=== PATIENT | male | born 1965 | race Caucasian/White ===

== ENCOUNTER → 2017-01-28 | Outpatient (CLI) | payer BC ==
[2017-01-28 13:08] LABS: CHLORIDE,CL 107 mmol/L (98-110); SODIUM,NA 139 mmol/L (136-146)
--- NOTE | 2017-01-28 14:19 | CR ---
EXAMINATION: Two-view chest (PA and Lateral views). HISTORY: Cough. Comparison: 10/16/2016. FINDINGS: The trachea is midline. The cardiomediastinal silhouette is within normal limits. Postsurgical bush es are noted within the left hemithorax with scarring within the medial left upper lobe. No pleural effusion or pneumothorax. Osseous structures appear unremarkable. IMPRESSION: No acute cardiopulmonary process.
== END | disposition home or self-care (01) ==
LOC: MW.CHFP 12:20
PROVIDERS: ATTEND Emergency Medicine
DX: R05 Cough (principal)
CPT/HCPCS: 36415; 71020; 71020-26; 80048; 85025; 86140

== ENCOUNTER → 2017-02-24 | Outpatient (CLI) | payer BC | LOC: MW.CHFP 11:43 | PROVIDERS: ATTEND Emergency Medicine | DX: R05 Cough (principal) | CPT/HCPCS: 87070; 87205 ==

== ENCOUNTER 2019-05-03 10:29 | Day surgery (SDC) | payer BC ==
[~2019-05-03 10:29] MED LIST: Lactated Ringers 1,000 ML IV SCH; Lidocaine 2% 5 ML SDV ONE; Propofol 200 MG/20 ML SDV ONE; Sodium Chloride 0.9% 10 ML SDV IV PRN; Sodium Chloride 0.9% 10 ML Syringe FLUSH PRN; Sodium Chloride 0.9% 2.5 ML Syringe FLUSH PRN; fentaNYL 100 MCG/2 ML SDV ONE
--- NOTE | 2019-05-03 11:17 | PCM.PREANE ---
Preanesthetic Assessment - Anesthesia/Transfusion/Family Hx Anesthesia History: Prior Anesthesia Without Reaction Other Type of Anesthesia Reaction Comment: "father had hard time waking up, he had polio as a young adult" Family History of Anesthesia Reaction: No Transfusion History: No Prior Transfusion(s) - Review of Systems General: No Symptoms Pulmonary: Other (occ wheezing uses ventolin daily, no recent exac or steroid use, hx of lobectomy for bening granulomatous disease) Cardiovascular: No Symptoms Gastrointestinal: No Symptoms Neurological: No Symptoms Other: Reports: None - Physical Assessment NPO Status Date: 05/02/19 O2 Sat by Pulse Oximetry: 98 Respiratory Rate: 16 Vital Signs: Last Vital Signs Temp 97.9 F 05/03/19 10:45 Pulse 64 05/03/19 10:45 Resp 16 05/03/19 10:45 BP 113/71 05/03/19 10:45 Pulse Ox 98 05/03/19 10:45 Height: 5 ft 10 in Weight: 73.028 kg ASA Class: 2 Mental Status: Alert & Oriented x3 Airway Class: Mallampati = 2 Dentition: Reports: Normal Dentition ROM/Head Extension: Full Lungs: Clear to Auscultation, Normal Respiratory Effort Cardiovascular: Regular Rate, Regular Rhythm - Allergies Allergies/Adverse Reactions: Allergies Allergy/AdvReac Type Severity Reaction Status Date / Time No Known Allergies Allergy Verified 04/26/19 09:41 - Blood Blood Available: No - Acknowledgements Anesthesia Type Planned: General Anesthesia Pt an Appropriate Candidate for the Planned Anesthesia: Yes Alternatives and Risks of Anesthesia Discussed w Pt/Guardian: Yes Pt/Guardian Understands and Agrees with Anesthesia Plan: Yes Additional Comments: 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, s/p lobectomy, BPH PLAN: mac/tiva PreAnesthesia Questionnaire HEENT History: Reports: Allergic Rhinitis, Hard of Hearing Other HEENT History: wears glasses, deaf in left ear Cardiovascular History: Reports: High Cholesterol Respiratory History: Reports: Other (See Below) Other Respiratory History: seasonal allergies which cause asthma like symptoms, seldom uses inhaler, 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 Gastrointestinal History: Reports: None Genitourinary History: Reports: BPH Musculoskeletal History: Reports: None Neurological History: Reports: Concussion Psychiatric History: Reports: Anxiety Endocrine/Metabolic History: Reports: None Hematologic History: Reports: None Immunologic History: Reports: None Oncologic (Cancer) History: Reports: None Dermatologic History: Reports: None - Past Surgical History Head Surgeries/Procedures: Reports: None HEENT Surgical History: Reports: Oral Surgery Other HEENT Surgeries/Procedures: dental implants Cardiovascular Surgical History: Reports: None Respiratory Surgical History: Reports: Lung Resection, Other (See Below) Other Respiratory Surgeries/Procedures: left upper pneumonectomy due to chronic lung infection in [place] GI Surgical History: Reports: Hernia, Inguinal Male Surgical History: Reports: None Endocrine Surgical History: Reports: None Neurological Surgical History: Reports: None Musculoskeletal Surgical History: Reports: None Oncologic Surgical History: Reports: None Dermatological Surgical History: Reports: None - SUBSTANCE USE Smoking Status *Q: Never Smoker Tobacco Use Within Last Twelve Months: Snuff/Dip Recreational Drug Use History: No - HOME MEDS Home Medications: Home Meds Albuterol [Ventolin HFA] 1 - 2 puff INH ASDIRECTED PRN 04/26/19 [History] Montelukast Sodium 10 mg PO BEDTIME 04/26/19 [History] Sertraline HCl 0.5 tab PO DAILY 04/26/19 [History] Tamsulosin HCl [Flomax] 0.4 mg PO DAILY 04/26/19 [History] atorvaSTATin Calcium [Atorvastatin Calcium] 10 mg PO DAILY 04/26/19 [History] - CURRENT (IN HOUSE) MEDS Current Meds: Current Medications Lactated Ringer's (Ringers, Lactated) 1,000 mls @ 125 mls/hr IV ASDIRECTED AUDRA Sodium Chloride (Saline Flush) 10 ml FLUSH ASDIRECTED PRN PRN Reason: Keep Vein Open Sodium Chloride (Saline Flush) 2.5 ml FLUSH ASDIRECTED PRN PRN Reason: Keep Vein Open Sodium Chloride (Saline Flush) 10 ml FLUSH ASDIRECTED PRN PRN Reason: Keep Vein Open Sodium Chloride (Saline Flush) 2.5 ml FLUSH ASDIRECTED PRN PRN Reason: Keep Vein Open Sodium Chloride (Normal Saline) 10 ml IV ASDIRECTED PRN PRN Reason: IV Use Discontinued Medications Fentanyl (Sublimaze) Confirm Administered Dose 100 mcg .ROUTE .STK-MED ONE Stop: 05/03/19 07:02 Lidocaine (Xylocaine-Mpf 2%) Confirm Administered Dose 5 ml .ROUTE .STK-MED ONE Stop: 05/03/19 07:02 Propofol (Diprivan 20 Ml) Confirm Administered Dose 400 mg .ROUTE .[facility] ONE Stop: 05/03/19 07:02
[2019-05-03] MEDS ORDERED: Glycopyrrolate 0.2 MG/ML SDV ONE ×2 (14:49→14:59)
--- NOTE | 2019-05-03 15:06 | PCM.POSTAN ---
POST ANESTHESIA ASSESSMENT - MENTAL STATUS Mental Status: Alert, Oriented - RESPIRATORY Respiratory Status: Respiratory Rate WNL, Airway Patent, O2 Saturation Stable - CARDIOVASCULAR CV Status: Pulse Rate WNL, Blood Pressure Stable - GASTROINTESTINAL GI Status: No Symptoms - POST OP HYDRATION Hydration Status: Adequate & Stable
--- NOTE | 2019-05-03 15:18 | PCM.OPNOTE ---
- General Post-Op/Procedure Note Date of Surgery/Procedure: 05/03/19 Operative Procedure(s): Screening colonoscopy Findings: Extensive diverticulosis through the sigmoid colon, sigmoid colon polyp Pre Op Diagnosis: Screening colonoscopy Post-Op Diagnosis: Diverticulosis, sigmoid colon polyp Anesthesia Technique: [facility] [place] Surgeon: Bailey Rod Condition: Good
--- NOTE | 2019-05-03 16:03 | PCM48HPAN ---
Post Anesthesia Note - EVALUATION WITHIN 48HRS OF ANESTHETIC Vital Signs in Normal Range: Yes Patient Participated in Evaluation: Yes Respiratory Function Stable: Yes Airway Patent: Yes Cardiovascular Function Stable: Yes Hydration Status Stable: Yes Pain Control Satisfactory: Yes Nausea and Vomiting Control Satisfactory: Yes Mental Status Recovered: Yes Resp Rate: 16
[2019-05-03 16:53] VITALS: BP 103/73
--- NOTE | 2019-05-03 18:57 | OR ---
SURGEON: BAILEY ROD MD DATE OF PROCEDURE: 05/03/2019 PREOPERATIVE DIAGNOSIS: Screening colonoscopy. POSTOPERATIVE DIAGNOSES: 1. Diverticulosis. 2. Sigmoid colon polyps. PROCEDURE PERFORMED: Screening colonoscopy. PRIMARY SURGEON: Endoscopist: Bailey Rod MD. ANESTHESIA: MAC. INSTRUMENT USED: Olympus colonoscope. EXTENT OF EXAM: To the cecum. PREPARATION: Good. LIMITATIONS: None. INDICATION FOR EXAMINATION: The patient is a 54-year-old male who presents for a screening colonoscopy. His father has a history of colon cancer. The patient and I discussed the procedure, expected perioperative course, and risks including bleeding, infection, or damage to surrounding structures including perforation. The patient verbalized understanding and wishes to proceed. PROCEDURE IN DETAIL: The patient was brought to the endoscopy suite and placed in the left lateral decubitus position. A time-out was completed verifying the patient's name, age, date of , allergies, and procedure to be performed. Monitored anesthesia care was induced and continuous oxygen was provided via nasal cannula throughout the procedure. After adequate sedation was achieved, a digital rectal exam was performed. This exam was within normal limits. A well-lubricated colonoscope was inserted in the rectum and advanced under direct visualization to the level of cecum. The cecum was then identified by both visual and anatomic landmarks. A photograph was taken of the cecal cap, however, I was unable to retroflex the scope within the cecum due to looping of the scope more proximally. The scope was then fully withdrawn while examining the color, texture, anatomy, and integrity of the mucosa from the cecum to the anal canal. The patient had a very redundant sigmoid colon with extensive diverticulosis throughout. There was one sessile sigmoid colon polyp in the midportion of the sigmoid. This was removed in piecemeal fashion using a cold biopsy forceps. The scope was then brought into the rectum and retroflexed to allow visualization of the anal canal opening. This appeared normal and a photograph was taken. The scope was straightened out and fully withdrawn. The cecum to anus time was 9 minutes. The patient tolerated the procedure well and transferred to the PACU in stable condition. ENDOSCOPIC DIAGNOSES: 1. Diverticulosis. 2. Sigmoid colon polyps. RECOMMENDATIONS: Follow up in clinic in 2 weeks. RICO / MCKAYLA /[id number]
== END 2019-05-03 16:05 | disposition home or self-care (01) ==
LOC: MW.SDS 10:29
PROVIDERS: ATTEND Surgery
DX: Z12.11 Encounter for screening for malignant neoplasm of colon (principal); K63.5 Polyp of colon; K57.30 Diverticulosis of large intestine without perforation or abscess without bleeding; F41.9 Anxiety disorder, unspecified; J30.2 Other seasonal allergic rhinitis; H91.92 Unspecified hearing loss, left ear; Z80.0 Family history of malignant neoplasm of digestive organs; Z79.52 Long term (current) use of systemic steroids; Z79.899 Other long term (current) drug therapy; Z98.890 Other specified postprocedural states
CPT/HCPCS: 45380; J2001; J2704; J3010; J3490; J7120; 88305

== ENCOUNTER 2019-09-15 19:09 | Observation (INO) | payer BC ==
[2019-09-15] MEDS ORDERED: Ondansetron 4 MG/2 ML SDV IVPUSH ONE (19:19)
[2019-09-15] MEDS ORDERED: Sodium Chloride 0.9% 2.5 ML Syringe FLUSH PRN (19:19)
[2019-09-15] MEDS ORDERED: Albuterol/Ipratropium 3.0-0.5 MG/3 ML Neb Soln NEB ONE (19:19)
[2019-09-15] MEDS ORDERED: methylPREDNISolone Sodium Succinate 125 MG/2 ML SDV IVPUSH ONE (19:19)
[2019-09-15] MEDS ORDERED: Sodium Chloride 0.9% 10 ML Syringe FLUSH PRN (19:19)
[2019-09-15] MEDS ORDERED: LORazepam 2 MG/ML SDV IVPUSH ONE (19:19)
[2019-09-15] MEDS ORDERED: HYDROmorphone 1 MG/ML Syringe IVPUSH ONE (19:19)
[2019-09-15] MEDS: Sodium Chloride 0.9% 1,000 ML IV SCH (19:36)
--- NOTE | 2019-09-15 19:36 | EDM.PDOC ---
ED HPI GENERAL MEDICAL PROBLEM - General Chief Complaint: Respiratory Problem Stated Complaint: COUGHING UP BLOOD Time Seen by Provider: 09/15/19 19:13 - History of Present Illness INITIAL COMMENTS - FREE TEXT/NARRATIVE: HISTORY AND PHYSICAL: History of present illness: Patient's a 54-year-old white male with history of histoplasmosis with an associated pulmonary Mass. this mass has been evaluated by surgery in an attempt to remove it and was found to be wrapped around pulmonary artery not thought to be malignant and was incompletely resected he is scheduled on October 19 to be evaluated at [facility] in [place] by [facility] specialist for further consideration and more complete resection he presents today after been hunting recently and now developed a cough with more significant hemoptysis has been qualified as beyond the amount that would fill up a shot glass in relatively persistent over the last 24 hours. There's been no fever chills nausea vomiting or other complaints he has had a similar episode in the past that was again related to an episode in which he did exert himself quite significantly. Review of systems: As per history of present illness and below otherwise all systems reviewed and negative. Past medical history: As per history of present illness and as reviewed below otherwise noncontributory. Surgical history: As per history of present illness and as reviewed below otherwise noncontributory. Social history: No reported history of drug or alcohol abuse. Family history: As per history of present illness and as reviewed below otherwise noncontributory. Physical exam: HEENT: Atraumatic, normocephalic, pupils reactive, negative for conjunctival pallor or scleral icterus, mucous membranes moist, throat clear, neck supple, nontender, trachea midline. Lungs: Clear to auscultation, breath sounds equal bilaterally, chest nontender. Heart: S1S2, regular, negative for clicks, rubs, or JVD. Abdomen: Soft, nondistended, nontender. Negative for masses or hepatosplenomegaly. Negative for costovertebral tenderness. Pelvis: Stable nontender. Genitourinary: Deferred. Rectal: Deferred. Extremities: Atraumatic, negative for cords or calf pain. Neurovascular unremarkable. Neuro: Awake, alert, oriented. Cranial nerves II through XII unremarkable. Cerebellum unremarkable. Motor and sensory unremarkable throughout. Exam nonfocal. Diagnostics: CBC CMP PT/INR influenza screen ABG EKG blood culture 2 CTA chest d-dimer Therapeutics: IV O2 monitor albuterol ipratropium nebulizer Solu-Medrol 125 mg IV Dilaudid 1 mg IV and Zofran 4 mg IV Ativan 1 mg Impression: #1 hemoptysis #2 history of histoplasmosis #3 history of pulmonary mass Definitive disposition and diagnosis as appropriate pending reevaluation and review of above. - Related Data Allergies Allergy/AdvReac Type Severity Reaction Status Date / Time No Known Allergies Allergy Verified 09/15/19 19:19 Home Meds: Home Meds Albuterol [Ventolin HFA] 1 - 2 puff INH ASDIRECTED PRN 04/26/19 [History] Montelukast Sodium 10 mg PO BEDTIME 04/26/19 [History] Sertraline HCl 0.5 tab PO DAILY 04/26/19 [History] Tamsulosin HCl [Flomax] 0.4 mg PO DAILY 04/26/19 [History] atorvaSTATin Calcium [Atorvastatin Calcium] 10 mg PO DAILY 04/26/19 [History] Past Medical History HEENT History: Reports: Allergic Rhinitis, Hard of Hearing Other HEENT History: wears glasses, deaf in left ear Cardiovascular History: Reports: High Cholesterol Respiratory History: Reports: Other (See Below) Other Respiratory History: seasonal allergies which cause asthma like symptoms, seldom uses inhaler, 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 Gastrointestinal History: Reports: None Genitourinary History: Reports: BPH Musculoskeletal History: Reports: None Neurological History: Reports: Concussion Psychiatric History: Reports: Anxiety Endocrine/Metabolic History: Reports: None Hematologic History: Reports: None Immunologic History: Reports: None Oncologic (Cancer) History: Reports: None Dermatologic History: Reports: None - Past Surgical History Head Surgeries/Procedures: Reports: None HEENT Surgical History: Reports: Oral Surgery Other HEENT Surgeries/Procedures: dental implants Cardiovascular Surgical History: Reports: None Respiratory Surgical History: Reports: Lung Resection, Other (See Below) Other Respiratory Surgeries/Procedures: left upper pneumonectomy due to chronic lung infection in [place] GI Surgical History: Reports: Hernia, Inguinal Male Surgical History: Reports: None Endocrine Surgical History: Reports: None Neurological Surgical History: Reports: None Musculoskeletal Surgical History: Reports: None Oncologic Surgical History: Reports: None Dermatological Surgical History: Reports: None Social & Family History - Tobacco Use Smoking Status *Q: Never Smoker ED ROS GENERAL - Review of Systems Review Of Systems: ROS reveals no pertinent complaints other than HPI. ED EXAM, GENERAL - Physical Exam Exam: See Below (Dictation) Course - Vital Signs Last Recorded V/S: Last Vital Signs Temp 36.1 C 09/15/19 19:14 Pulse 74 09/15/19 21:22 Resp 14 09/15/19 21:22 BP 119/67 09/15/19 21:22 Pulse Ox 96 09/15/19 21:22 - Orders/Labs/Meds Orders: Active Orders 24 hr Category Date Time Status Cardiac Monitoring [RC] . DIRECTED Care 09/15/19 19:17 Active EKG Documentation Completion [RC] STAT Care 09/15/19 19:17 Active Oxygen Therapy, ED [RC] ASDIRECTED Care 09/15/19 19:17 Active Pulse Oximetry [RC] ASDIRECTED Care 09/15/19 19:17 Active RT Aerosol Therapy [RC] ASDIRECTED Care 09/15/19 19:20 Active CULTURE BLOOD [BC] Stat Lab 09/15/19 19:30 Received CULTURE BLOOD [BC] Stat Lab 09/15/19 19:45 Received Levofloxacin/Dextrose 5%-Water [Levaquin in D5W 750 MG/ Med 09/15/19 21:38 Active 150 ML] 750 mg Premix Bag 1 bag IV ONETIME Sodium Chloride 0.9% [Normal Saline] 1,000 ml Med 09/15/19 19:30 Active IV STAT Sodium Chloride 0.9% [Saline Flush] Med 09/15/19 19:19 Active 10 ml FLUSH ASDIRECTED PRN Sodium Chloride 0.9% [Saline Flush] Med 09/15/19 19:19 Active 2.5 ml FLUSH ASDIRECTED PRN Blood Culture x2 Reflex Set [OM.PC] Stat Oth 09/15/19 19:18 Ordered Saline Lock Insert [OM.PC] Stat Oth 09/15/19 19:17 Ordered Medication Orders Sodium Chloride (Normal Saline) 1,000 mls @ 125 mls/hr IV STAT [facility] Last Admin: 09/15/19 19:36 Dose: 125 mls/hr Levofloxacin/Dextrose 750 mg/ (Premix) 150 mls @ 100 mls/hr IV ONETIME ONE Stop: 09/15/19 23:07 Sodium Chloride (Saline Flush) 10 ml FLUSH ASDIRECTED PRN PRN Reason: Keep Vein Open Sodium Chloride (Saline Flush) 2.5 ml FLUSH ASDIRECTED PRN PRN Reason: Keep Vein Open Labs: Laboratory Tests 09/15/19 09/15/19 09/15/19 Range/Units 19:15 19:15 19:15 WBC 10.46 (4.0-11.0) K/uL RBC 4.29 L (4.50-5.90) M/uL Hgb 13.5 (13.0-17.0) g/dL Hct 40.6 (38.0-50.0) % MCV 94.6 (80.0-98.0) fL MCH 31.5 (27.0-32.0) pg MCHC 33.3 (31.0-37.0) g/dL RDW Std Deviation 47.9 (28.0-62.0) fl RDW Coeff of Maribel 14 (11.0-15.0) % Plt Count 352 (150-400) K/uL MPV 9.80 (7.40-12.00) fL Neut % (Auto) 61.9 (48.0-80.0) % Lymph % (Auto) 28.4 (16.0-40.0) % [place] % (Auto) 8.1 (0.0-15.0) % Eos % (Auto) 1.4 (0.0-7.0) % Baso % (Auto) 0.2 (0.0-1.5) % Neut # (Auto) 6.5 H (1.4-5.7) K/uL Lymph # (Auto) 3.0 H (0.6-2.4) K/uL [place] # (Auto) 0.9 H (0.0-0.8) K/uL Eos # (Auto) 0.2 (0.0-0.7) K/uL Baso # (Auto) 0.0 (0.0-0.1) K/uL Nucleated RBC % 0.0 /100WBC Nucleated RBCs # 0 K/uL INR D-Dimer, Quantitative (0.0-0.50) mg/L FEU ABG pH (7.35-7.45) ABG pCO2 (35-45) mmHG ABG pO2 (75-100) mmHG ABG HCO3 (22-26) mEq/L ABG Total CO2 ABG Base Excess (-2.0-2.0) Sodium 144 (136-148) mmol/L Potassium 3.9 (3.5-5.1) mmol/L Chloride 105 (98-107) mmol/L Carbon Dioxide 27.7 (21.0-32.0) mmol/L BUN 19 H (7.0-18.0) mg/dL Creatinine 1.1 (0.8-1.3) mg/dL Est Cr Clr Drug Dosing TNP Estimated GFR (MDRD) > 60.0 ml/min Glucose 91 (74-106) mg/dL Calcium 8.8 (8.5-10.1) mg/dL Total Bilirubin 0.3 (0.2-1.0) mg/dL AST 21 (15-37) IU/L ALT 24 (14-63) IU/L Alkaline Phosphatase 59 (46-116) U/L B-Natriuretic Peptide 19 (<100) PG/ML Total Protein 7.6 (6.4-8.2) g/dL Albumin 3.8 (3.4-5.0) g/dL Globulin 3.8 (2.6-4.0) g/dL Albumin/Globulin Ratio 1.0 (0.9-1.6) 09/15/19 09/15/19 Range/Units 19:15 19:28 WBC (4.0-11.0) K/uL RBC (4.50-5.90) M/uL Hgb (13.0-17.0) g/dL Hct (38.0-50.0) % MCV (80.0-98.0) fL MCH (27.0-32.0) pg MCHC (31.0-37.0) g/dL RDW Std Deviation (28.0-62.0) fl RDW Coeff of Maribel (11.0-15.0) % Plt Count (150-400) K/uL MPV (7.40-12.00) fL Neut % (Auto) (48.0-80.0) % Lymph % (Auto) (16.0-40.0) % [place] % (Auto) (0.0-15.0) % Eos % (Auto) (0.0-7.0) % Baso % (Auto) (0.0-1.5) % Neut # (Auto) (1.4-5.7) K/uL Lymph # (Auto) (0.6-2.4) K/uL [place] # (Auto) (0.0-0.8) K/uL Eos # (Auto) (0.0-0.7) K/uL Baso # (Auto) (0.0-0.1) K/uL Nucleated RBC % /100WBC Nucleated RBCs # K/uL INR 0.98 D-Dimer, Quantitative 0.39 (0.0-0.50) mg/L FEU ABG pH 7.474 H (7.35-7.45) ABG pCO2 36 (35-45) mmHG ABG pO2 70 L (75-100) mmHG ABG HCO3 26 (22-26) mEq/L ABG Total CO2 23.3 ABG Base Excess 2.9 H (-2.0-2.0) Sodium (136-148) mmol/L Potassium (3.5-5.1) mmol/L Chloride (98-107) mmol/L Carbon Dioxide (21.0-32.0) mmol/L BUN (7.0-18.0) mg/dL Creatinine (0.8-1.3) mg/dL Est Cr Clr Drug Dosing Estimated GFR (MDRD) ml/min Glucose (74-106) mg/dL Calcium (8.5-10.1) mg/dL Total Bilirubin (0.2-1.0) mg/dL AST (15-37) IU/L ALT (14-63) IU/L Alkaline Phosphatase (46-116) U/L B-Natriuretic Peptide (<100) PG/ML Total Protein (6.4-8.2) g/dL Albumin (3.4-5.0) g/dL Globulin (2.6-4.0) g/dL Albumin/Globulin Ratio (0.9-1.6) Meds: Medications Generic Name Dose Route Start Last Admin Trade Name Freq PRN Reason Stop Dose Admin Sodium Chloride 1,000 mls @ 125 mls/hr 09/15/19 19:30 09/15/19 19:36 Normal Saline IV 125 mls/hr STAT AUDRA Administration Levofloxacin/Dextrose 750 mg/ 150 mls @ 100 mls/hr 09/15/19 21:38 Premix IV 09/15/19 23:07 ONETIME ONE Sodium Chloride 10 ml 09/15/19 19:19 Saline Flush FLUSH ASDIRECTED PRN Keep Vein Open Sodium Chloride 2.5 ml 09/15/19 19:19 Saline Flush FLUSH ASDIRECTED PRN Keep Vein Open Discontinued Medications Generic Name Dose Route Start Last Admin Trade Name Freq PRN Reason Stop Dose Admin Albuterol/Ipratropium 3 ml 09/15/19 19:19 09/15/19 19:32 Duoneb 3.0-0.5 Mg/3 Ml NEB 09/15/19 19:20 3 ml ONETIME ONE Administration Hydromorphone HCl 1 mg 09/15/19 19:19 09/15/19 19:38 Dilaudid IVPUSH 09/15/19 19:20 1 mg ONETIME ONE Administration Iopamidol 50 ml 09/15/19 20:31 09/15/19 20:31 Isovue Multipack-370 (76%) IVPUSH 09/15/19 20:32 50 ml ONETIME STA Administration Lorazepam 1 mg 09/15/19 19:19 09/15/19 19:45 Ativan IVPUSH 09/15/19 19:20 1 mg ONETIME ONE Administration Methylprednisolone Sodium Succinate 125 mg 09/15/19 19:19 09/15/19 19:36 Solu-Medrol IVPUSH 09/15/19 19:20 125 mg ONETIME ONE Administration Ondansetron HCl 4 mg 09/15/19 19:19 09/15/19 19:43 Zofran IVPUSH 09/15/19 19:20 4 mg ONETIME ONE Administration Departure - Departure Time of Disposition: 21:45 Disposition: Refer to Observation Condition: Good Clinical Impression: Pneumonia, Hemoptysis, History of histoplasmosis - Discharge Information Referrals: Arley Ramirez MD [Primary Care Provider] - Forms: ED Department Discharge - My Orders Last 24 Hours: My Active Orders 09/15/19 19:17 Cardiac Monitoring [RC] . DIRECTED EKG Documentation Completion [RC] STAT Oxygen Therapy, ED [RC] ASDIRECTED Pulse Oximetry [RC] ASDIRECTED Saline Lock Insert [OM.PC] Stat 09/15/19 19:18 Blood Culture x2 Reflex Set [OM.PC] Stat 09/15/19 19:19 Sodium Chloride 0.9% [Saline Flush] 10 ml FLUSH ASDIRECTED PRN Sodium Chloride 0.9% [Saline Flush] 2.5 ml FLUSH ASDIRECTED PRN 09/15/19 19:20 RT Aerosol Therapy [RC] ASDIRECTED 09/15/19 19:30 CULTURE BLOOD [BC] Stat Sodium Chloride 0.9% [Normal Saline] 1,000 ml IV STAT 09/15/19 19:45 CULTURE BLOOD [BC] Stat 09/15/19 21:38 Levofloxacin/Dextrose 5%-Water [Levaquin in D5W 750 MG/150 ML] 750 mg Premix Bag 1 bag IV ONETIME - Assessment/Plan Last 24 Hours: My Active Orders 09/15/19 19:17 Cardiac Monitoring [RC] . DIRECTED EKG Documentation Completion [RC] STAT Oxygen Therapy, ED [RC] ASDIRECTED Pulse Oximetry [RC] ASDIRECTED Saline Lock Insert [OM.PC] Stat 09/15/19 19:18 Blood Culture x2 Reflex Set [OM.PC] Stat 09/15/19 19:19 Sodium Chloride 0.9% [Saline Flush] 10 ml FLUSH ASDIRECTED PRN Sodium Chloride 0.9% [Saline Flush] 2.5 ml FLUSH ASDIRECTED PRN 09/15/19 19:20 RT Aerosol Therapy [RC] ASDIRECTED 09/15/19 19:30 CULTURE BLOOD [BC] Stat Sodium Chloride 0.9% [Normal Saline] 1,000 ml IV STAT 09/15/19 19:45 CULTURE BLOOD [BC] Stat 09/15/19 21:38 Levofloxacin/Dextrose 5%-Water [Levaquin in D5W 750 MG/150 ML] 750 mg Premix Bag 1 bag IV ONETIME
[2019-09-15 19:48] LABS: BLOOD UREA NITROGEN,BUN 19 mg/dL (7.0-18.0); CARBON DIOXIDE,CO2 27.7 mmol/L (21.0-32.0); CHLORIDE,CL 105 mmol/L (98-107); GLUCOSE RANDOM 91 mg/dL (74-106); POTASSIUM,K 3.9 mmol/L (3.5-5.1); SODIUM,NA 144 mmol/L (136-148)
[2019-09-15] MEDS ORDERED: Iopamidol 755 MG/ML 500 ML Multipack Bottle IVPUSH STA (20:31)
--- NOTE | 2019-09-15 21:19 | CT ---
INDICATION: Hemoptysis, history of histoplasmosis s/p left upper pneumonectomy TECHNIQUE: CT chest pulmonary PE protocol acquired with 50 cc Isovue 370 IV contrast. COMPARISON: January 27, 2018 FINDINGS: Cardiovascular structures: Suboptimal opacification of the pulmonary arteries. Although no large pulmonary embolus is identified, remainder of the pulmonary arterial tree cannot be adequately evaluated with this exam. The heart size is normal. No sign of aneurysm in the thoracic aorta. Mediastinum and patricio: No mass or adenopathy. Lungs: Interval increase in size of masslike density in the left upper lobe, previously 2.5 x 2.2 x 5.7cm, currently 3.3 x 3.5 x 5.9 cm. Tubular air-filled spaces within the mass. There are also some calcifications along the medial and inferior aspect of the mass. Surgical suture seen along the left pleural fissure. New, faint airspace opacities in the left lower lobe. No endobronchial lesion. Pleura and pericardium: No effusions. Chest wall and axilla: No mass or adenopathy. Upper abdomen: Calcified splenic granulomata. Bones: No significant findings. IMPRESSION: Suboptimal opacification of the pulmonary arteries. Although no large pulmonary embolus is identified, remainder of the pulmonary arterial tree cannot be adequately evaluated with this exam. Interval increase in size of masslike density in the left upper lobe. Tubular air-filled spaces within the mass may represent focal bronchiectasis. This may be related to the patient`s history of histoplasmosis. Recommend pulmonology consultation. New airspace disease in the left lower lobe concerning for pneumonia. Please note that all CT scans at this facility use dose modulation, iterative reconstruction, and/or weight-based dosing when appropriate to reduce radiation dose to as low as reasonably achievable. Dictated by Joslyn Koo MD @ Sep 15 2019 9:18PM Signed by Dr. Joslyn Koo @ Sep 15 2019 9:18PM
[2019-09-15] MEDS ORDERED: Levofloxacin/Dextrose 5%-Water 750 MG in Premix Bag 1 BAG IV ONE (21:38)
[2019-09-15] MEDS ORDERED: Levofloxacin/Dextrose 5%-Water 150 ML IV ONE (21:41)
[2019-09-15] MEDS ORDERED: Albuterol/Ipratropium 3.0-0.5 MG/3 ML Neb Soln NEB PRN (22:59)
--- NOTE | 2019-09-15 23:15 | PCM.HP.2 ---
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 which has been evaluated by surgery in an attempt to remove it and was found to be wrapped around major vessels artery so was incompletely resected in 2016, Biopsy showed benign mass.. Ever since the mass has been increasing in size so he is scheduled to see a surgeon on October 19 at [facility] in [place] by renowned specialist for further consideration and more complete resection. Patient he presents today after been hunting recently and now developed a cough with more significant hemoptysis. Patient was at his dinner table when he started coughing up blood, states it was a cup full of blood. Patient does have chronic hemoptysis related to overexertion but today it has been much more significant. Denied fever chills nausea vomiting or other complaints. No chest pain, N/V, abdominal pain, urinary symptoms Onset of Symptoms: Reports: Today Duration of Symptoms: Reports: Day(s): Location: Reports: Chest - Related Data Allergies/Adverse Reactions: Allergies Allergy/AdvReac Type Severity Reaction Status Date / Time No Known Allergies Allergy Verified 09/15/19 19:19 Home Medications: Home Meds Albuterol [Ventolin HFA] 1 - 2 puff INH ASDIRECTED PRN 04/26/19 [History] Montelukast Sodium 10 mg PO BEDTIME 04/26/19 [History] Sertraline HCl 0.5 tab PO DAILY 04/26/19 [History] Tamsulosin HCl [Flomax] 0.4 mg PO DAILY 04/26/19 [History] atorvaSTATin Calcium [Atorvastatin Calcium] 10 mg PO DAILY 04/26/19 [History] Past Medical History HEENT History: Reports: Allergic Rhinitis, Hard of Hearing Other HEENT History: wears glasses, deaf in left ear Cardiovascular History: Reports: High Cholesterol Respiratory History: Reports: Other (See Below) Other Respiratory History: seasonal allergies which cause asthma like symptoms, seldom uses inhaler, 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 Gastrointestinal History: Reports: None Genitourinary History: Reports: BPH Musculoskeletal History: Reports: None Neurological History: Reports: Concussion Psychiatric History: Reports: Anxiety Endocrine/Metabolic History: Reports: None Hematologic History: Reports: None Immunologic History: Reports: None Oncologic (Cancer) History: Reports: None Dermatologic History: Reports: None - Past Surgical History Head Surgeries/Procedures: Reports: None HEENT Surgical History: Reports: Oral Surgery Other HEENT Surgeries/Procedures: dental implants Cardiovascular Surgical History: Reports: None Respiratory Surgical History: Reports: Lung Resection, Other (See Below) Other Respiratory Surgeries/Procedures: left upper pneumonectomy due to chronic lung infection in [place] GI Surgical History: Reports: Hernia, Inguinal Male Surgical History: Reports: None Endocrine Surgical History: Reports: None Neurological Surgical History: Reports: None Musculoskeletal Surgical History: Reports: None Oncologic Surgical History: Reports: None Dermatological Surgical History: Reports: None Social & Family History - Tobacco Use Smoking Status *Q: Never Smoker H&P Review of Systems - Review of Systems: Review Of Systems: See Below General: Denies: Fever, Chills, Malaise HEENT: Denies: Dysphasia, Ear Pain, Eye Pain Pulmonary: Reports: Cough, Hemoptysis Cardiovascular: Denies: Chest Pain, Palpitations, Dyspnea on Exertion Gastrointestinal: Denies: Abdominal Pain, Black Stool, Bloody Stool Genitourinary: Denies: Frequency, Burning, Pain Musculoskeletal: Denies: Neck Pain, Shoulder Pain, Arm Pain Skin: Denies: Cyanosis, Jaundice, Mottled Psychiatric: Denies: Confusion, Depression, Mood Lability Exam - Exam Exam: See Below - Vital Signs Vital Signs: Last Vital Signs Temp 37.1 C 09/15/19 23:03 Pulse 70 09/15/19 23:03 Resp 16 09/15/19 23:03 BP 112/63 09/15/19 23:03 Pulse Ox 95 09/15/19 23:03 Weight: 68.039 kg - Exam General: Alert, Oriented HEENT: Conjunctiva Clear, Hearing Intact, Mucosa Moist & [place] Neck: Supple, Trachea Midline Lungs: Clear to Auscultation, Normal Respiratory Effort Cardiovascular: Regular Rate, Regular Rhythm, Normal S1, Normal S2 GI/Abdominal Exam: Normal Bowel Sounds, Soft, Non-Tender Rectal (Males) Exam: Normal Exam - Patient Data Lab Results Last 24 hrs: Laboratory Results - last 24 hr 1009/15/19 09/15/19 Range/Units 19:15 19:15 19:15 WBC 10.46 (4.0-11.0) K/uL RBC 4.29 L (4.50-5.90) M/uL Hgb 13.5 (13.0-17.0) g/dL Hct 40.6 (38.0-50.0) % MCV 94.6 (80.0-98.0) fL MCH 31.5 (27.0-32.0) pg MCHC 33.3 (31.0-37.0) g/dL RDW Std Deviation 47.9 (28.0-62.0) fl RDW Coeff of Maribel 14 (11.0-15.0) % Plt Count 352 (150-400) K/uL MPV 9.80 (7.40-12.00) fL Neut % (Auto) 61.9 (48.0-80.0) % Lymph % (Auto) 28.4 (16.0-40.0) % [place] % (Auto) 8.1 (0.0-15.0) % Eos % (Auto) 1.4 (0.0-7.0) % Baso % (Auto) 0.2 (0.0-1.5) % Neut # (Auto) 6.5 H (1.4-5.7) K/uL Lymph # (Auto) 3.0 H (0.6-2.4) K/uL [place] # (Auto) 0.9 H (0.0-0.8) K/uL Eos # (Auto) 0.2 (0.0-0.7) K/uL Baso # (Auto) 0.0 (0.0-0.1) K/uL Nucleated RBC % 0.0 /100WBC Nucleated RBCs # 0 K/uL INR D-Dimer, Quantitative (0.0-0.50) mg/L FEU ABG pH (7.35-7.45) ABG pCO2 (35-45) mmHG ABG pO2 (75-100) mmHG ABG HCO3 (22-26) mEq/L ABG Total CO2 ABG Base Excess (-2.0-2.0) Sodium 144 (136-148) mmol/L Potassium 3.9 (3.5-5.1) mmol/L Chloride 105 (98-107) mmol/L Carbon Dioxide 27.7 (21.0-32.0) mmol/L BUN 19 H (7.0-18.0) mg/dL Creatinine 1.1 (0.8-1.3) mg/dL Est Cr Clr Drug Dosing TNP Estimated GFR (MDRD) > 60.0 ml/min Glucose 91 (74-106) mg/dL Calcium 8.8 (8.5-10.1) mg/dL Total Bilirubin 0.3 (0.2-1.0) mg/dL AST 21 (15-37) IU/L ALT 24 (14-63) IU/L Alkaline Phosphatase 59 (46-116) U/L B-Natriuretic Peptide 19 (<100) PG/ML Total Protein 7.6 (6.4-8.2) g/dL Albumin 3.8 (3.4-5.0) g/dL Globulin 3.8 (2.6-4.0) g/dL Albumin/Globulin Ratio 1.0 (0.9-1.6) 09/15/19 09/15/19 Range/Units 19:15 19:28 WBC (4.0-11.0) K/uL RBC (4.50-5.90) M/uL Hgb (13.0-17.0) g/dL Hct (38.0-50.0) % MCV (80.0-98.0) fL MCH (27.0-32.0) pg MCHC (31.0-37.0) g/dL RDW Std Deviation (28.0-62.0) fl RDW Coeff of Maribel (11.0-15.0) % Plt Count (150-400) K/uL MPV (7.40-12.00) fL Neut % (Auto) (48.0-80.0) % Lymph % (Auto) (16.0-40.0) % [place] % (Auto) (0.0-15.0) % Eos % (Auto) (0.0-7.0) % Baso % (Auto) (0.0-1.5) % Neut # (Auto) (1.4-5.7) K/uL Lymph # (Auto) (0.6-2.4) K/uL [place] # (Auto) (0.0-0.8) K/uL Eos # (Auto) (0.0-0.7) K/uL Baso # (Auto) (0.0-0.1) K/uL Nucleated RBC % /100WBC Nucleated RBCs # K/uL INR 0.98 D-Dimer, Quantitative 0.39 (0.0-0.50) mg/L FEU ABG pH 7.474 H (7.35-7.45) ABG pCO2 36 (35-45) mmHG ABG pO2 70 L (75-100) mmHG ABG HCO3 26 (22-26) mEq/L ABG Total CO2 23.3 ABG Base Excess 2.9 H (-2.0-2.0) Sodium (136-148) mmol/L Potassium (3.5-5.1) mmol/L Chloride (98-107) mmol/L Carbon Dioxide (21.0-32.0) mmol/L BUN (7.0-18.0) mg/dL Creatinine (0.8-1.3) mg/dL Est Cr Clr Drug Dosing Estimated GFR (MDRD) ml/min Glucose (74-106) mg/dL Calcium (8.5-10.1) mg/dL Total Bilirubin (0.2-1.0) mg/dL AST (15-37) IU/L ALT (14-63) IU/L Alkaline Phosphatase (46-116) U/L B-Natriuretic Peptide (<100) PG/ML Total Protein (6.4-8.2) g/dL Albumin (3.4-5.0) g/dL Globulin (2.6-4.0) g/dL Albumin/Globulin Ratio (0.9-1.6) Result Diagrams: 09/15/19 19:15 09/15/19 19:15 Ranjith Results Last 24 hrs: Microbiology 09/15/19 19:45 Influenza Type A Antigen Screen - Final Nasopharyngeal Swab - Nare, Unspecified NEGATIVE INFLUENZA A VIRUS AG REFERENCE RANGE: NEGATIVE Influenza Type B Antigen Screen - Final NEGATIVE INFLUENZA B VIRUS AG REFERENCE RANGE: NEGATIVE *Q Meaningful Use (ADM) - VTE Risk Assess *Q Each Risk Factor Represents 1 Point: Age 41 - 59 years Total Score 1 Point Risk Factors: 1 Each Risk Factor Represents 2 Points: None Total Score 2 Point Risk Factors: 0 Each Risk Factor Represents 3 Points: None Total Score 3 Point Risk Factors: 0 Each Risk Factor Represents 5 Points: None Total Score 5 Point Risk Factors: 0 Venous Thromboembolism Risk Factor Score *Q: 1 - Problem List (1) Community acquired pneumonia SNOMED Code(s): 607362131 ICD Code: J18.9 - PNEUMONIA, UNSPECIFIED ORGANISM Status: Acute Current Visit: Yes (2) Hemoptysis SNOMED Code(s): 15420703 ICD Code: R04.2 - HEMOPTYSIS Status: Acute Current Visit: Yes (3) History of histoplasmosis SNOMED Code(s): 95067233267958 ICD Code: Z86.19 - PERSONAL HISTORY OF OTHER INFECTIOUS AND PARASITIC DISEASES Status: Acute Current Visit: Yes Problem List Initiated/Reviewed/Updated: Yes Orders Last 24hrs: Active Orders 24 hr Category Date Time Status Patient Status [ADT] Stat ADT 09/15/19 21:46 Active Cardiac Monitoring [RC] Q8H Care 09/15/19 19:17 Active EKG 12 Lead [EKG Documentation Completion] [RC] URGENT Care 09/15/19 22:57 Active EKG Documentation Completion [RC] STAT Care 09/15/19 19:17 Active Oxygen Therapy [RC] PRN Care 09/15/19 22:59 Active Oxygen Therapy, ED [RC] ASDIRECTED Care 09/15/19 19:17 Active Pulse Oximetry [RC] ASDIRECTED Care 09/15/19 19:17 Active RT Aerosol Therapy [RC] ASDIRECTED Care 09/15/19 19:20 Active RT Aerosol Therapy [RC] ASDIRECTED Care 09/15/19 23:05 Active Telemetry Monitoring [Cardiac Monitoring] [RC] . Care 09/15/19 22:25 Active DIRECTED VTE/DVT Education [RC] PER UNIT ROUTINE Care 09/15/19 22:59 Active Vital Signs [RC] Q4H Care 09/15/19 22:59 Active Clear Liquid Diet [DIET] Diet 09/16/19 Breakfast Active BMP [BASIC METABOLIC PANEL,BMP] [CHEM] AM Lab 09/16/19 05:11 Ordered CBC WITH AUTO DIFF [HEME] AM Lab 09/16/19 05:11 Ordered CULTURE BLOOD [BC] Stat Lab 09/15/19 19:30 Received CULTURE BLOOD [BC] Stat Lab 09/15/19 19:45 Received MAGNESIUM [CHEM] AM Lab 09/16/19 05:11 Ordered MAGNESIUM [CHEM] Routine Lab 09/15/19 23:06 Received PHOSPHORUS [CHEM] AM Lab 09/16/19 05:11 Ordered PHOSPHORUS [CHEM] Routine Lab 09/15/19 23:06 Received TROPONIN I [CHEM] Q6H Lab 09/15/19 23:06 Received TROPONIN I [CHEM] Q6H Lab 09/16/19 04:56 Ordered TROPONIN I [CHEM] Q6H Lab 09/16/19 10:56 Ordered Albuterol/Ipratropium [DuoNeb 3.0-0.5 MG/3 ML] Med 09/15/19 22:59 Active 3 ml NEB Q4HRRT PRN Levofloxacin/Dextrose 5%-Water [Levaquin in D5W 750 MG/ Med 09/16/19 09:00 Pending 150 ML] 750 mg Premix Bag 1 bag IV Q24H Sodium Chloride 0.9% [Normal Saline] 1,000 ml Med 09/15/19 19:30 Active IV STAT Sodium Chloride 0.9% [Saline Flush] Med 09/15/19 19:19 Active 10 ml FLUSH ASDIRECTED PRN Sodium Chloride 0.9% [Saline Flush] Med 09/15/19 19:19 Active 2.5 ml FLUSH ASDIRECTED PRN Blood Culture x2 Reflex Set [OM.PC] Stat Oth 09/15/19 19:18 Ordered Saline Lock Insert [OM.PC] Stat Oth 09/15/19 19:17 Ordered Resuscitation Status Routine Resus Stat 09/15/19 22:59 Ordered Medication Orders Albuterol/Ipratropium (Duoneb 3.0-0.5 Mg/3 Ml) 3 ml NEB Q4HRRT PRN PRN Reason: Shortness Of Breath/wheezing Sodium Chloride (Normal Saline) 1,000 mls @ 125 mls/hr IV STAT AUDRA Last Admin: 09/15/19 19:36 Dose: 125 mls/hr Levofloxacin/Dextrose 750 mg/ (Premix) 150 mls @ 100 mls/hr IV Q24H AUDRA Sodium Chloride (Saline Flush) 10 ml FLUSH ASDIRECTED PRN PRN Reason: Keep Vein Open Sodium Chloride (Saline Flush) 2.5 ml FLUSH ASDIRECTED PRN PRN Reason: Keep Vein Open Assessment/Plan Comment:: A/P: Patient came in with c/o hemoptysis Relatively stable during my assessment, no more bleeding episodes CT angio ruled out big PE but couldn't rule out smaller PE as study was suboptimal, did show some infiltrates suggestive of pneumonia No signs suggestive of sepsis start IV Levofloxacin f/u on cultures Patient has h/o histoplasmosis, Hemoptysis sec to Pneumonia vs histoplasmosis Hb stable, will repeat at 5am Hold all anticoagulation NPO for now Monitor and replete electrolytes Will cont to monitor, if significant bleeding recurs will have to transfer for urgent bronchoscopy No heparin DVT ppx sec. to bleeding history Anticipate 1-2 midnight stays which might change based on clinical course
[2019-09-16] MEDS: Sodium Chloride 0.9% 1,000 ML IV SCH (04:31)
[2019-09-16 05:25] LABS: BLOOD UREA NITROGEN,BUN 17 mg/dL (7.0-18.0); CARBON DIOXIDE,CO2 24.6 mmol/L (21.0-32.0); CHLORIDE,CL 106 mmol/L (98-107); GLUCOSE RANDOM 162 mg/dL (74-106); POTASSIUM,K 4.4 mmol/L (3.5-5.1); SODIUM,NA 140 mmol/L (136-148)
[2019-09-16 07:41] VITALS: BP 116/68; PULSE 59
[2019-09-16] MEDS ORDERED: FLU Vacc QS2019-20(6MOS+)/PF 60 MCG/0.5 ML SYRINGE IM ONE (10:00)
--- NOTE | 2019-09-16 11:13 | PCM.DCSUM1 ---
Discharge Summary - Hospital Course Free Text/Narrative:: 54 y/o male with history of histoplasmosis s/p partial resection of left lung mass. Presented to the ER complaining of increased hemoptysis. Patient states he was having dinner when suddenly he coughed up a significant about of bright red blood enough to fill a shot glass. CT chest showed interval increase in left upper lung mass measuring 3.3x3.5x5.9 cm. In addition, he was found to have a left lower lung infiltrate. No evidence of pulmonary embolism. He was admitted for pneumonia and hemoptysis. Overnight, patient remained hemodynamically stable. No hemoptysis during hospitalization. He was started on Levaquin 750 mg IV Daily. His hemoglobin remained stable Hg 12, not needing supplemental oxygenation. He was discharged home on Levaquin 750 mg PO daily for 10 days. In addition, follow-up with his rubber goods repairer as soon as possible and repeat chest xray in 2 weeks after antibiotic treatment. - Discharge Data Discharge Date: 09/16/19 Discharge Disposition: Home, Self-Care 01 Condition: Good - Referral to Home Health Primary Care Physician: Arley Ramirez MD - Patient Instructions Diet: Regular Diet as Tolerated Activity: As Tolerated, No Strenuous Activities, Rest and Relax Today Notify Provider of: Fever, Increased Pain, Swelling and Redness, Nausea and/or Vomiting Other/Special Instructions: If bleeding becomes substantial or more frequent, you need to seek medical care. - Discharge Plan *PRESCRIPTION DRUG MONITORING PROGRAM REVIEWED*: Not Applicable *COPY OF PRESCRIPTION DRUG MONITORING REPORT IN PATIENT BRIT: Not Applicable Prescriptions/Med Rec: Levofloxacin [Levaquin] 750 mg PO DAILY 10 Days #10 tablet Home Medications: Home Meds Albuterol [Ventolin HFA] 1 - 2 puff INH ASDIRECTED PRN 04/26/19 [History] Montelukast Sodium 10 mg PO DAILY 04/26/19 [History] Sertraline HCl 0.5 tab PO ASDIRECTED PRN 04/26/19 [History] Tamsulosin HCl [Flomax] 0.4 mg PO DAILY 04/26/19 [History] atorvaSTATin Calcium [Atorvastatin Calcium] 10 mg PO DAILY 04/26/19 [History] Levofloxacin [Levaquin] 750 mg PO DAILY 10 Days #10 tablet 09/16/19 [Rx] Patient Handouts: Hemoptysis, Hpat-cp-Uelt, Community-Acquired Pneumonia, Adult Referrals: Arley Ramirez MD [Primary Care Provider] - - Discharge Summary/Plan Comment DC Time >30 min.: No - Patient Data Vitals - Most Recent: Last Vital Signs Temp 36.3 C 09/16/19 07:39 Pulse 59 L 09/16/19 07:39 Resp 16 09/16/19 07:39 BP 116/68 09/16/19 07:39 Pulse Ox 96 09/16/19 07:39 Weight - Most Recent: 68.039 kg I&O - Last 24 hours: Intake & Output 09/15/19 09/16/19 09/16/19 22:59 06:59 14:59 Intake Total 736 Output Total 870 Balance -134 Lab Results - Last 24 hrs: Laboratory Results - last 24 hr 09/15/19 09/15/19 09/15/19 Range/Units 19:15 19:15 19:15 WBC 10.46 (4.0-11.0) K/uL RBC 4.29 L (4.50-5.90) M/uL Hgb 13.5 (13.0-17.0) g/dL Hct 40.6 (38.0-50.0) % MCV 94.6 (80.0-98.0) fL MCH 31.5 (27.0-32.0) pg MCHC 33.3 (31.0-37.0) g/dL RDW Std Deviation 47.9 (28.0-62.0) fl RDW Coeff of Maribel 14 (11.0-15.0) % Plt Count 352 (150-400) K/uL MPV 9.80 (7.40-12.00) fL Neut % (Auto) 61.9 (48.0-80.0) % Lymph % (Auto) 28.4 (16.0-40.0) % [place] % (Auto) 8.1 (0.0-15.0) % Eos % (Auto) 1.4 (0.0-7.0) % Baso % (Auto) 0.2 (0.0-1.5) % Neut # (Auto) 6.5 H (1.4-5.7) K/uL Lymph # (Auto) 3.0 H (0.6-2.4) K/uL [place] # (Auto) 0.9 H (0.0-0.8) K/uL Eos # (Auto) 0.2 (0.0-0.7) K/uL Baso # (Auto) 0.0 (0.0-0.1) K/uL Nucleated RBC % 0.0 /100WBC Nucleated RBCs # 0 K/uL INR D-Dimer, Quantitative (0.0-0.50) mg/L FEU ABG pH (7.35-7.45) ABG pCO2 (35-45) mmHG ABG pO2 (75-100) mmHG ABG HCO3 (22-26) mEq/L ABG Total CO2 ABG Base Excess (-2.0-2.0) Sodium 144 (136-148) mmol/L Potassium 3.9 (3.5-5.1) mmol/L Chloride 105 (98-107) mmol/L Carbon Dioxide 27.7 (21.0-32.0) mmol/L BUN 19 H (7.0-18.0) mg/dL Creatinine 1.1 (0.8-1.3) mg/dL Est Cr Clr Drug Dosing TNP Estimated GFR (MDRD) > 60.0 ml/min Glucose 91 (74-106) mg/dL Calcium 8.8 (8.5-10.1) mg/dL Phosphorus (2.6-4.7) mg/dL Magnesium (1.8-2.4) mg/dL Total Bilirubin 0.3 (0.2-1.0) mg/dL AST 21 (15-37) IU/L ALT 24 (14-63) IU/L Alkaline Phosphatase 59 (46-116) U/L Troponin I (0.000-0.056) ng/mL B-Natriuretic Peptide 19 (<100) PG/ML Total Protein 7.6 (6.4-8.2) g/dL Albumin 3.8 (3.4-5.0) g/dL Globulin 3.8 (2.6-4.0) g/dL Albumin/Globulin Ratio 1.0 (0.9-1.6) 09/15/19 09/15/19 09/15/19 Range/Units 19:15 19:28 23:06 WBC (4.0-11.0) K/uL RBC (4.50-5.90) M/uL Hgb (13.0-17.0) g/dL Hct (38.0-50.0) % MCV (80.0-98.0) fL MCH (27.0-32.0) pg MCHC (31.0-37.0) g/dL RDW Std Deviation (28.0-62.0) fl RDW Coeff of Maribel (11.0-15.0) % Plt Count (150-400) K/uL MPV (7.40-12.00) fL Neut % (Auto) (48.0-80.0) % Lymph % (Auto) (16.0-40.0) % [place] % (Auto) (0.0-15.0) % Eos % (Auto) (0.0-7.0) % Baso % (Auto) (0.0-1.5) % Neut # (Auto) (1.4-5.7) K/uL Lymph # (Auto) (0.6-2.4) K/uL [place] # (Auto) (0.0-0.8) K/uL Eos # (Auto) (0.0-0.7) K/uL Baso # (Auto) (0.0-0.1) K/uL Nucleated RBC % /100WBC Nucleated RBCs # K/uL INR 0.98 D-Dimer, Quantitative 0.39 (0.0-0.50) mg/L FEU ABG pH 7.474 H (7.35-7.45) ABG pCO2 36 (35-45) mmHG ABG pO2 70 L (75-100) mmHG ABG HCO3 26 (22-26) mEq/L ABG Total CO2 23.3 ABG Base Excess 2.9 H (-2.0-2.0) Sodium (136-148) mmol/L Potassium (3.5-5.1) mmol/L Chloride (98-107) mmol/L Carbon Dioxide (21.0-32.0) mmol/L BUN (7.0-18.0) mg/dL Creatinine (0.8-1.3) mg/dL Est Cr Clr Drug Dosing Estimated GFR (MDRD) ml/min Glucose (74-106) mg/dL Calcium (8.5-10.1) mg/dL Phosphorus (2.6-4.7) mg/dL Magnesium (1.8-2.4) mg/dL Total Bilirubin (0.2-1.0) mg/dL AST (15-37) IU/L ALT (14-63) IU/L Alkaline Phosphatase (46-116) U/L Troponin I < 0.050 (0.000-0.056) ng/mL B-Natriuretic Peptide (<100) PG/ML Total Protein (6.4-8.2) g/dL Albumin (3.4-5.0) g/dL Globulin (2.6-4.0) g/dL Albumin/Globulin Ratio (0.9-1.6) 09/15/19 09/16/19 09/16/19 Range/Units 23:06 05:00 05:00 WBC 7.02 (4.0-11.0) K/uL RBC 3.93 L (4.50-5.90) M/uL Hgb 12.5 L (13.0-17.0) g/dL Hct 37.2 L (38.0-50.0) % MCV 94.7 (80.0-98.0) fL MCH 31.8 (27.0-32.0) pg MCHC 33.6 (31.0-37.0) g/dL RDW Std Deviation 47.5 (28.0-62.0) fl RDW Coeff of Maribel 14 (11.0-15.0) % Plt Count 311 (150-400) K/uL MPV 9.70 (7.40-12.00) fL Neut % (Auto) 87.0 H (48.0-80.0) % Lymph % (Auto) 12.0 L (16.0-40.0) % [place] % (Auto) 1.0 (0.0-15.0) % Eos % (Auto) 0.0 (0.0-7.0) % Baso % (Auto) 0.0 (0.0-1.5) % Neut # (Auto) 6.1 H (1.4-5.7) K/uL Lymph # (Auto) 0.8 (0.6-2.4) K/uL [place] # (Auto) 0.1 (0.0-0.8) K/uL Eos # (Auto) 0.0 (0.0-0.7) K/uL Baso # (Auto) 0.0 (0.0-0.1) K/uL Nucleated RBC % 0.0 /100WBC Nucleated RBCs # 0 K/uL INR D-Dimer, Quantitative (0.0-0.50) mg/L FEU ABG pH (7.35-7.45) ABG pCO2 (35-45) mmHG ABG pO2 (75-100) mmHG ABG HCO3 (22-26) mEq/L ABG Total CO2 ABG Base Excess (-2.0-2.0) Sodium (136-148) mmol/L Potassium (3.5-5.1) mmol/L Chloride (98-107) mmol/L Carbon Dioxide (21.0-32.0) mmol/L BUN (7.0-18.0) mg/dL Creatinine (0.8-1.3) mg/dL Est Cr Clr Drug Dosing Estimated GFR (MDRD) ml/min Glucose (74-106) mg/dL Calcium (8.5-10.1) mg/dL Phosphorus 2.4 L (2.6-4.7) mg/dL Magnesium 1.9 (1.8-2.4) mg/dL Total Bilirubin (0.2-1.0) mg/dL AST (15-37) IU/L ALT (14-63) IU/L Alkaline Phosphatase (46-116) U/L Troponin I < 0.050 (0.000-0.056) ng/mL B-Natriuretic Peptide (<100) PG/ML Total Protein (6.4-8.2) g/dL Albumin (3.4-5.0) g/dL Globulin (2.6-4.0) g/dL Albumin/Globulin Ratio (0.9-1.6) 09/16/19 Range/Units 05:00 WBC (4.0-11.0) K/uL RBC (4.50-5.90) M/uL Hgb (13.0-17.0) g/dL Hct (38.0-50.0) % MCV (80.0-98.0) fL MCH (27.0-32.0) pg MCHC (31.0-37.0) g/dL RDW Std Deviation (28.0-62.0) fl RDW Coeff of Maribel (11.0-15.0) % Plt Count (150-400) K/uL MPV (7.40-12.00) fL Neut % (Auto) (48.0-80.0) % Lymph % (Auto) (16.0-40.0) % [place] % (Auto) (0.0-15.0) % Eos % (Auto) (0.0-7.0) % Baso % (Auto) (0.0-1.5) % Neut # (Auto) (1.4-5.7) K/uL Lymph # (Auto) (0.6-2.4) K/uL [place] # (Auto) (0.0-0.8) K/uL Eos # (Auto) (0.0-0.7) K/uL Baso # (Auto) (0.0-0.1) K/uL Nucleated RBC % /100WBC Nucleated RBCs # K/uL INR D-Dimer, Quantitative (0.0-0.50) mg/L FEU ABG pH (7.35-7.45) ABG pCO2 (35-45) mmHG ABG pO2 (75-100) mmHG ABG HCO3 (22-26) mEq/L ABG Total CO2 ABG Base Excess (-2.0-2.0) Sodium 140 (136-148) mmol/L Potassium 4.4 (3.5-5.1) mmol/L Chloride 106 (98-107) mmol/L Carbon Dioxide 24.6 (21.0-32.0) mmol/L BUN 17 (7.0-18.0) mg/dL Creatinine 1.0 (0.8-1.3) mg/dL Est Cr Clr Drug Dosing 82.21 Estimated GFR (MDRD) > 60.0 ml/min Glucose 162 H (74-106) mg/dL Calcium 8.5 (8.5-10.1) mg/dL Phosphorus 3.0 (2.6-4.7) mg/dL Magnesium 1.8 (1.8-2.4) mg/dL Total Bilirubin (0.2-1.0) mg/dL AST (15-37) IU/L ALT (14-63) IU/L Alkaline Phosphatase (46-116) U/L Troponin I (0.000-0.056) ng/mL B-Natriuretic Peptide (<100) PG/ML Total Protein (6.4-8.2) g/dL Albumin (3.4-5.0) g/dL Globulin (2.6-4.0) g/dL Albumin/Globulin Ratio (0.9-1.6) [facility] Results - Last 24 hrs: Microbiology 09/15/19 19:45 Influenza Type A Antigen Screen - Final Nasopharyngeal Swab - Nare, Unspecified NEGATIVE INFLUENZA A VIRUS AG REFERENCE RANGE: NEGATIVE Influenza Type B Antigen Screen - Final NEGATIVE INFLUENZA B VIRUS AG REFERENCE RANGE: NEGATIVE Med Orders - Current: Current Medications Albuterol/Ipratropium (Duoneb 3.0-0.5 Mg/3 Ml) 3 ml NEB Q4HRRT PRN PRN Reason: Shortness Of Breath/wheezing Sodium Chloride (Normal Saline) 1,000 mls @ 125 mls/hr IV STAT AUDRA Last Admin: 09/16/19 04:31 Dose: 125 mls/hr Levofloxacin/Dextrose 750 mg/ (Premix) 150 mls @ 100 mls/hr IV Q24H AUDRA Sodium Chloride (Saline Flush) 10 ml FLUSH ASDIRECTED PRN PRN Reason: Keep Vein Open Sodium Chloride (Saline Flush) 2.5 ml FLUSH ASDIRECTED PRN PRN Reason: Keep Vein Open Discontinued Medications Albuterol/Ipratropium (Duoneb 3.0-0.5 Mg/3 Ml) 3 ml NEB ONETIME ONE Stop: 09/15/19 19:20 Last Admin: 09/15/19 19:32 Dose: 3 ml Hydromorphone HCl (Dilaudid) 1 mg IVPUSH ONETIME ONE Stop: 09/15/19 19:20 Last Admin: 09/15/19 19:38 Dose: 1 mg Levofloxacin/Dextrose 750 mg/ (Premix) 150 mls @ 100 mls/hr IV ONETIME ONE Stop: 09/15/19 23:07 Last Admin: 09/15/19 21:49 Dose: 100 mls/hr Levofloxacin/Dextrose (Levaquin In D5w 750 Mg/150 Ml) Confirm Administered Dose 150 mls @ as directed IV .STK-MED ONE Stop: 09/15/19 21:42 Last Admin: 09/15/19 21:50 Dose: Not Given Influenza Virus Vaccine (Pharmacy To Dose - Influenza Vaccine) 1 each IM ONETIME ONE Stop: 09/16/19 00:45 Influenza Virus Vaccine (Fluzone Quad 3507-3677 Syringe) 60 mcg IM .ONCE ONE Stop: 09/16/19 10:01 Iopamidol (Isovue Multipack-370 (76%)) 50 ml IVPUSH ONETIME STA Stop: 09/15/19 20:32 Last Admin: 09/15/19 20:31 Dose: 50 ml Lorazepam (Ativan) 1 mg IVPUSH ONETIME ONE Stop: 09/15/19 19:20 Last Admin: 09/15/19 19:45 Dose: 1 mg Methylprednisolone Sodium Succinate (Solu-Medrol) 125 mg IVPUSH ONETIME ONE Stop: 09/15/19 19:20 Last Admin: 09/15/19 19:36 Dose: 125 mg Ondansetron HCl (Zofran) 4 mg IVPUSH ONETIME ONE Stop: 09/15/19 19:20 Last Admin: 09/15/19 19:43 Dose: 4 mg
[2019-09-16] MEDS ORDERED: Levofloxacin/Dextrose 5%-Water 750 MG in Premix Bag 1 BAG IV SCH (21:00)
== END 2019-09-16 12:30 | disposition home or self-care (01) ==
LOC: MW.ED 19:09 → MW.MS 21:46
PROVIDERS: ADMIT Student in an Organized Health Care Education/Training Program; ATTEND Student in an Organized Health Care Education/Training Program
DX: J18.9 Pneumonia, unspecified organism (principal); R04.2 Hemoptysis; E78.00 Pure hypercholesterolemia, unspecified; N40.0 Benign prostatic hyperplasia without lower urinary tract symptoms; F41.9 Anxiety disorder, unspecified; Z86.19 Personal history of other infectious and parasitic diseases; Z90.2 Acquired absence of lung [part of]; Z79.899 Other long term (current) drug therapy
CPT/HCPCS: 36415; 36600; 71275; 80048; 80053; 82803; 83735; 83880; 84100; 84484; 85025; 85379; 85610; 87040; 87804; 90686; 93005; 94640; 96361; 96365; 96375; 99285; J1170; J1956; J2060; J2405; J2930; J7040; Q9967; 99284; G0378; J7620-GY

== ENCOUNTER 2024-03-15 17:43 | Emergency (ER) | payer BC ==
[2024-03-15] MEDS ORDERED: Ketorolac 30 MG/ML SDV ONE (18:09)
[2024-03-15] MEDS ORDERED: Metoclopramide 10 MG/2 ML SDV ONE (18:09)
[2024-03-15] MEDS ORDERED: diphenhydrAMINE 50 MG/ML SDV ONE (18:09)
[2024-03-15] MEDS: Sodium Chloride 0.9% 10 ML Syringe FLUSH PRN (18:13)
[2024-03-15] MEDS: Sodium Chloride 0.9% 2.5 ML Syringe FLUSH PRN (18:13)
[2024-03-15] MEDS: diphenhydrAMINE 50 MG/ML SDV IVPUSH ONE (18:14)
[2024-03-15] MEDS: Ketorolac 30 MG/ML SDV IVPUSH ONE (18:14)
[2024-03-15] MEDS: Sodium Chloride 0.9% 1,000 ML IV ONE (18:14)
[2024-03-15] MEDS: Metoclopramide 10 MG/2 ML SDV IVPUSH ONE (18:14)
[2024-03-15 18:30] LABS: BASOPHILS ABSOLUTE AUTO 0.02 K/uL (0.00-0.20); BASOPHILS PERCENT AUTO 0.1 % (0.0-1.0); EOSINOPHILS ABSOLUTE AUTO 0.23 K/uL (0.00-0.45); EOSINOPHILS PERCENT AUTO 1.5 % (0.0-6.0); HEMOGLOBIN 15.3 g/dL (14.0-18.0); IMMATURE GRAN ABSOLUTE AUTO 0.04 K/uL (0.00-0.05); IMMATURE GRAN PERCENT AUTO 0.3 % (0.0-0.4); LYMPHOCYTES ABSOLUTE AUTO 0.77 K/uL (1.00-4.80); MEAN CORPUSCULAR HEMOGLOBIN 31.4 pg (28.0-32.0); MEAN CORPUSCULAR HGB CONC 34.8 g/dL (32.0-36.0); MEAN CORPUSCULAR VOLUME 90.2 fL (83.0-99.0); MEAN PLATELET VOLUME 8.7 fL (9.4-12.4); MONOCYTES ABSOLUTE AUTO 0.58 K/uL (0.00-0.80); MONOCYTES PERCENT AUTO 3.7 % (0.0-8.0); NEUTROPHILS ABSOLUTE AUTO 13.85 K/uL (1.80-7.70); NEUTROPHILS PERCENT AUTO 89.4 % (41.0-71.0); PLATELET COUNT,PLT 228 K/uL (150-400); RED BLOOD CELL COUNT 4.88 M/uL (4.52-5.90); WHITE BLOOD CELL COUNT,WBC 15.49 K/uL (3.9-11.3)
[2024-03-15 18:57] LABS: A/G RATIO 0.8 (0.9-1.6); BILIRUBIN TOTAL 0.8 mg/dL (0.2-1.0); CALCIUM 8.8 mg/dL (8.5-10.1); CARBON DIOXIDE,CO2 24.5 mmol/L (21.0-32.0); CREATININE 1.2 mg/dL (0.8-1.3); EST CRCL DRUG DOSING (CG) 69.28 mL/min; POTASSIUM,K 4.2 mmol/L (3.5-5.1)
[2024-03-15 19:10] LABS: CORONAVIRUS COVID-19 NAA NEGATIVE (NEGATIVE); INFLUENZA A NAA NEGATIVE (NEGATIVE); INFLUENZA B NAA NEGATIVE (NEGATIVE); RESPIRATORY SYNCYTIAL VIR NAA NEGATIVE (NEGATIVE)
[2024-03-15 19:44] VITALS: BP 111/67; PULSE 80
== END 2024-03-15 19:43 | disposition home or self-care (01) ==
LOC: MW.ED 17:43
DX: R51.9 Headache, unspecified (principal); E78.00 Pure hypercholesterolemia, unspecified; Z79.899 Other long term (current) drug therapy
CPT/HCPCS: 0241U; 36415; 80053; 85025; 96361; 96374; 96375; 99284; J1200; J1885; J2765; J3490; J7030